=== PATIENT | female | born 1990 ===

== ENCOUNTER 2021-07-21 02:30 | Emergency (ER) | payer SELFPAY ==
[2021-07-21 04:03] LABS: Hematocrit 38.6 % (36.0-45.0); Lymphocytes % 22.4 % (15.3-44.8); MPV 8.3 fL (7.6-11.3); RBC Red Blood Cell Count 4.26 M/uL (3.86-4.86)
[2021-07-21 04:24] LABS: ALT/SGPT 18 U/L (12-78); Albumin 3.4 g/dL (3.4-5.0); Alkaline Phosphatase 64 U/L (45-117); BUN Blood Urea Nitrogen 19 mg/dL (7-18); Bicarbonate 29 mmol/L (21-32); Bilirubin Total 0.2 mg/dL (0.2-1.0); Glucose Level 83 mg/dL (74-106); Lipase 148 U/L (73-393); Protein, Total 6.5 g/dL (6.4-8.2); Sodium Level 140 mmol/L (136-145)
[2021-07-21 04:25] LABS: AST/SGOT 16 U/L (15-37); Potassium 4.1 mmol/L (3.5-5.1)
--- NOTE | 2021-07-21 06:03 | ER ---
Nurse's Notes [facility] Name: Lolis Tucker Age: 31 yrs Sex: Female : 1990 Arrival Date: 07/21/2021 Time: 02:33 Bed 7 Private MD: Diagnosis: Lower abdominal pain, unspecified;Infectious gastroenteritis and colitis, unspecified Presentation: 07/21 02:59 Chief complaint: Patient states: "I feel like I have a tampon up there. It is the only jb4 thing that I can think of. I am having abdominal pain too.". Coronavirus screen: Vaccine status: Patient reports being unvaccinated. Ebola Screen: Patient negative for fever greater than or equal to 101.5 degrees Fahrenheit, and additional compatible Ebola Virus Disease symptoms Patient denies exposure to infectious person. Patient denies travel to an Ebola-affected area in the 21 days before illness onset. Initial Sepsis Screen: Does the patient meet any 2 criteria? HR > 90 bpm. Does the patient have a suspected source of infection? Yes: Acute abdominal pain. Risk Assessment: Do you want to hurt yourself or someone else? Patient reports no desire to harm self or others. Onset of symptoms was July 20, 2021 at 14:00. 02:59 Method Of Arrival: Ambulatory jb4 02:59 Acuity: MELO 3 jb4 Triage Assessment: 03:01 General: Appears slender, Behavior is calm, cooperative, appropriate for age. Pain: jb4 Complains of pain in suprapubic area Pain currently is 7 out of 10 on a pain scale. 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 - Social history:: Smoking status: Patient reports the use of cigarette tobacco products, smokes one-half pack cigarettes per day. - Family history:: not pertinent. - Hospitalizations: : No recent hospitalization is reported. Screenin:14 Abuse screen: Denies threats or abuse. Denies injuries from another. Nutritional as6 screening: No deficits noted. Tuberculosis screening: No symptoms or risk factors identified. Fall Risk None identified. Assessment: 03:40 General: Appears in no apparent distress. Behavior is calm, cooperative. Pain: as6 Complains of pain in suprapubic area Quality of pain is described as crampy, pressure. Neuro: Level of Consciousness is awake, alert, obeys commands, Oriented to person, place, time, situation. Cardiovascular: Capillary refill < 3 seconds Patient's skin is warm and dry. Respiratory: Airway is patent Trachea midline Respiratory effort is even, unlabored, Respiratory pattern is regular, symmetrical. 03:40 GI: Reports lower abdominal pain, cramping. as6 Vital Signs: 02:59 BP 113 / 84; Pulse 114; Resp 22; Temp 97.9(O); Pulse Ox 100% ; Weight 47.63 kg; Height jb4 5 ft. 1 in. (154.94 cm); Pain 7/10; 04:14 BP 101 / 61; Pulse 74; Resp 18 S; Pulse Ox 100% on R/A; as6 05:27 BP 106 / 72; Pulse 86; Resp 18 S; Pulse Ox 100% on R/A; as6 02:59 Body Mass Index 19.84 (47.63 kg, 154.94 cm) jb4 ED Course: 02:33 Patient arrived in ED. bp1 02:34 Aleksander Zuñiga MD is Attending Physician. rn 03:01 Triage completed. jb4 03:01 Arm band placed on right wrist. jb4 03:28 Zak Samuel, RN is Primary Nurse. as6 03:47 Inserted saline lock: 20 gauge in right antecubital area, using aseptic technique. as6 Blood collected. 03:54 CBC with Diff Sent. as6 03:54 CMP Sent. as6 03:54 Lipase Sent. as6 04:14 Placed in gown. Bed in low position. Call light in reach. Side rails up X 1. Adult w/ as6 patient. Pulse ox on. NIBP on. Warm blanket given. 04:52 CT Abd/Pelvis - IV Contrast Only In Process Unspecified. EDMS 05:28 Assist provider with pelvic exam: Set up pelvic tray. Performed by Aleksander Zuñiga MD as6 Patient tolerated well. 06:12 IV discontinued, intact, bleeding controlled, No redness/swelling at site. Pressure as6 dressing applied. Administered Medications: No medications were administered Outcome: 06:03 Discharge ordered by . rn 06:12 Discharged to home ambulatory, with significant other. as6 06:12 Condition: stable 06:12 Discharge instructions given to patient, Instructed on discharge instructions, follow up and referral plans. medication usage, Demonstrated understanding of instructions, follow-up care, medications, Prescriptions given X 2. 06:13 Patient left the ED. as6 Signatures: Dispatcher [employer] EDMS Aleksander Zuñiga MD MD rn Bryson, James RN RN jb4 Randi Casarez Ashby, RN RN as6 Corrections: (The following items were deleted from the chart) 03:02 03:01 Home Meds: multivitamin Oral cap; jb4 jb4
--- NOTE | 2021-07-21 06:04 | EDPHYS ---
Physician Documentation [facility] Name: Lolis Tucker Age: 31 yrs Sex: Female : 1990 Arrival Date: 07/21/2021 Time: 02:33 Bed 7 Private MD: ED Physician Aleksander Zuñiga HPI: 07/21 03:02 This 31 yrs old Female presents to ER via Ambulatory with complaints of abdominal pain, rn possible Foreign body In Vagina. 03:02 The patient presents with abdominal pain in the lower abdomen. Onset: The rn symptoms/episode began/occurred today. The symptoms do not radiate. Associated signs and symptoms: Pertinent negatives: blood in stools, dysuria, fever, vaginal discharge. The symptoms are described as dull. The symptoms are described as crampy. Modifying factors: The symptoms are alleviated by nothing. Modifying factors: the symptoms are aggravated by touching the area. Severity of pain: At its worst the pain was mild in the emergency department the pain is unchanged. The patient has not experienced similar symptoms in the past. The patient has not recently seen a physician. Pt reports lower abd pain that began yesterday, states is on her period, does not remember if she used a tampon, is not sure if one is left inside of her, and would like us to check. No fever/vomiting/diarrhea. NO trauma. No urinary symptoms. Reports has had tubal ligation.. 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 - Social history:: Smoking status: Patient reports the use of cigarette tobacco products, smokes one-half pack cigarettes per day. - Family history:: not pertinent. - Hospitalizations: : No recent hospitalization is reported. ROS: 03:02 Constitutional: Negative for fever, chills, and weight loss, Eyes: Negative for injury, rn pain, redness, and discharge, Neck: Negative for injury, pain, and swelling, Cardiovascular: Negative for chest pain, palpitations, and edema, Respiratory: Negative for shortness of breath, cough, wheezing, and pleuritic chest pain, Abdomen/GI: + lower abd pain Back: Negative for injury and pain, : Negative for injury, bleeding, discharge, and swelling, MS/Extremity: Negative for injury and deformity, Skin: Negative for injury, rash, and discoloration, Neuro: Negative for headache, weakness, numbness, tingling, and seizure. Exam: 03:02 Constitutional: This is a well developed, well nourished patient who is awake, alert, rn and in no acute distress. Appears sleepy/somnolent but ambulatory to room without assistance. Head/Face: Normocephalic, atraumatic. Cardiovascular: tachycardic, regular Respiratory: No increased work of breathing, no retractions or nasal flaring. Abdomen/GI: soft, mild suprapubic tenderness, no rebound Pelvic Exam: Normal external genitalia. Speculum exam with closed cervical os, no discharge, + small amount of vaginal blood, no foreign body, specifically a tampon was not seen. Skin: Warm, dry MS/ Extremity: Pulses equal, no cyanosis. Neuro: Awake, GCS 15, normal gait Vital Signs: 02:59 BP 113 / 84; Pulse 114; Resp 22; Temp 97.9(O); Pulse Ox 100% ; Weight 47.63 kg; Height jb4 5 ft. 1 in. (154.94 cm); Pain 7/10; 04:14 BP 101 / 61; Pulse 74; Resp 18 S; Pulse Ox 100% on R/A; as6 05:27 BP 106 / 72; Pulse 86; Resp 18 S; Pulse Ox 100% on R/A; as6 02:59 Body Mass Index 19.84 (47.63 kg, 154.94 cm) jb4 MDM: 02:34 Patient medically screened. rn 06:02 Differential diagnosis: diverticulitis, Endometriosis, non-specific abd pain, rn Ureterolithiasis, urinary tract infection. Data reviewed: vital signs, nurses notes, lab test result(s), radiologic studies, CT scan, and as a result, I will discharge patient. Counseling: I had a detailed discussion with the patient and/or guardian regarding: the historical points, exam findings, and any diagnostic results supporting the discharge/admit diagnosis, lab results, radiology results, the need for outpatient follow up, to return to the emergency department if symptoms worsen or persist or if there are any questions or concerns that arise at home. Response to treatment: the patient's symptoms have mildly improved after treatment, and as a result, I will discharge patient. Special discussion: Based on the patient's Hx, exam, and Dx evaluation, there is no indication for emergent surgery or inpatient Tx. It is understood by the patient/guardian that if the Sx's persist or worsen they need to return immediately for re-evaluation. I discussed with the patient/guardian in detail that at this point there is no indication for admission to the hospital. It is understood, however, that if the symptoms persist or worsen the patient needs to return immediately for re-evaluation. ED course: No vaginal foreign body identified on exam, CT shows possible enteritis/colitis, which could explain her abd pain, will dc home with abx and return precautions. . 07/21 03:02 Order name: CBC with Diff; Complete Time: 06:02 rn 07/21 03:02 Order name: CMP; Complete Time: 06:02 rn 07/21 03:02 Order name: Lipase; Complete Time: 06:02 rn 07/21 03:02 Order name: CT Abd/Pelvis - IV Contrast Only rn 07/21 03:02 Order name: IV Saline Lock; Complete Time: 03:54 rn 07/21 03:02 Order name: Labs collected and sent; Complete Time: 03:54 rn 07/21 03:02 Order name: Pelvic Exam Setup; Complete Time: 04:25 rn Administered Medications: No medications were administered Disposition Summary: 07/21/21 06:03 Discharge Ordered Location: Home rn Problem: new rn Symptoms: have improved rn Condition: Stable rn Diagnosis - Lower abdominal pain, unspecified rn - Infectious gastroenteritis and colitis, unspecified rn Followup: rn - With: Private Physician - When: As needed - Reason: Recheck today's complaints, Re-evaluation by your physician Discharge Instructions: - Discharge Summary Sheet rn - Abdominal Pain, Adult rn - Colitis rn Forms: - Medication Reconciliation Form rn - Thank You Letter rn - 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 - Prescription Opioid Use rn Prescriptions: - Flagyl 500 mg Oral Tablet - take 1 tablet by ORAL route every 8 hours for 10 days; 30 tablet; Refills: 0, rn Product Selection Permitted - Cipro 500 mg Oral Tablet - take 1 tablet by ORAL route every 12 hours for 10 days; 20 tablet; Refills: 0, rn Product Selection Permitted Signatures: Dispatcher [employer] EDAleksander Jameson MD MD rn Bryson, James, RN RN jb4 Corrections: (The following items were deleted from the chart) 03:02 03:01 Home Meds: multivitamin Oral cap; jb4 jb4 05:28 03:02 Constitutional: This is a well developed, well nourished patient who is awake, rn alert, and in no acute distress. Appears sleepy/somnolent but ambulatory to room without assistance. Head/Face: Normocephalic, atraumatic. Cardiovascular: tachycardic, regular Respiratory: No increased work of breathing, no retractions or nasal flaring. Abdomen/GI: soft, mild suprapubic tenderness, no rebound Skin: Warm, dry MS/ Extremity: Pulses equal, no cyanosis. Neuro: Awake, GCS 15, normal gait rn
[2021-07-21 06:27] VITALS: TEMP 97.9; O2SAT 100
[2021-07-21 06:29] VITALS: BP 106/72
--- NOTE | 2021-07-22 14:37 | RAD REPORT ---
EXAM DESCRIPTION: CT - Abdomen Pelvis W Contrast - 07/21/2021 6:51 am CLINICAL HISTORY: The patient is 31 years years old, Female; Abdominal pain, acute, nonlocalized TECHNIQUE: Axial computed tomography images of the abdomen with intravenous contrast. Sagittal and coronal reformatted images were created and reviewed. This CT exam was performed using one or more of the following dose reduction techniques: automated exposure control, adjustment of the mA and/o r kV according to patient size, and/or use of iterative reconstruction technique. COMPARISON: CT abdomen dated 06/13/2014 FINDINGS: LUNG BASES: The visualized lung bases show no evidence of mass, pulmonary nodules or sosa ss consolidation. PLEURAL SPACE: There is no evidence of pleural effusions or pneumothoraces. HEART: The visualized heart and pericardium are normal. ABDOMEN: LIVER: Unremarkable. The liver is normal in size and configuration. There are no significant foca l defects. There is no evidence of biliary ductal dilatation. GALLBLADDER AND BILE DUCTS: Unremarkable. There is no evidence of calculi or pericholecystic inflam matory changes. There is no biliary ductal dilatation. PANCREAS: Unremarkable. No ductal dilatation, inflammatory changes or mass. SPLEEN: Unremarkable. No splenomegaly or focal defects. ADRENALS: Unremarkable. No mass or calcification. KIDNEYS AND URETERS: There are no acute findings in the kidneys. There is no evidence of solid mass , hydronephrosis or right There is a tiny nonobstructive calculus in the interpolar region of the left kidney renal contrast ex cretion is symmetric radiopaque nonobstructive intrarenal calculi. STOMACH AND BOWEL: The stomach is unremarkable. There is mural thickening of the duodenum up to 0.7 cm concerning for nonspecific duodenitis. Other portions of the small bowel are unremarkable. Areas of mural thickening in portions of the left colon and rectum may relate to nondistention versus nonsp ecific inflammatory etiology. PELVIS: APPENDIX: The appendix is not identified with surgical clips along the tip of the cecum suggesting previous appendectomy. There are no inflammatory changes in its expected location. BLADDER: Unremarkable, allowing for the degree of distention. There is no evidence of cystolithiasi s or bladder mass. REPRODUCTIVE: The uterus and adnexa are unremarkable. ABDOMEN and PELVIS: INTRAPERITONEAL SPACE: There is no evidence of free air. Free fluid in the pelvis is within physiologic limits in volume. BONES/JOINTS: There is no evidence of acute fracture, osseous destruction or osteoblastic changes. 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 There is a mild dextroconvex thoracolumbar curvature. SOFT TISSUES: Unremarkable. VASCULATURE: Unremarkable. No abdominal aortic aneurysm. LYMPH NODES: Unremarkable. There is no evidence of mesenteric, retroperitoneal, pelvic or inguin al adenopathy. IMPRESSION: Duodenal mural thickening concerning for nonspecific duodenitis although nondistention m ay contribute to this appearance. Areas of mural thickening in portions of the left colon and rectum may relate to nondistention versus nonspecific inflammatory etiology. Electronically signed by: Shannan Pérez MD 07/21/2021 5:53 AM CDT Due to temporary technical issues with the PACS/Fluency reporting system, reports are being signed by the in house radiologists without review as a courtesy to insure prompt reporting. The interpreting radiologist is fully responsible for the content of the report.
== END 2021-07-21 06:13 | disposition home or self-care (01) ==
LOC: ER 02:30
DX: A09 Infectious gastroenteritis and colitis, unspecified (principal); F17.210 Nicotine dependence, cigarettes, uncomplicated; Z88.2 Allergy status to sulfonamides
CPT/HCPCS: 36415; 74177; 80053; 83690; 85025; 99284; Q9967